=== PATIENT | female | born 1950 | race Two or more races ===

== ENCOUNTER 2022-03-31 07:25 | Outpatient (CLI) | payer OTHER | END 2022-03-31 07:31 | disposition home or self-care (01) | LOC: NUCLEAR 07:25 → EDBD 07:25 → NUCLEAR 07:31 | PROVIDERS: ATTEND Internal Medicine Cardiovascular Disease | DX: I10 Essential (primary) hypertension (principal); I48.0 Paroxysmal atrial fibrillation; Z79.01 Long term (current) use of anticoagulants; E11.9 Type 2 diabetes mellitus without complications; E78.2 Mixed hyperlipidemia; E66.9 Obesity, unspecified; Z13.6 Encounter for screening for cardiovascular disorders; I83.893 Varicose veins of bilateral lower extremities with other complications; I87.2 Venous insufficiency (chronic) (peripheral); R06.00 Dyspnea, unspecified | CPT/HCPCS: 78452; 93017; A9500; J0153 ==